=== PATIENT | male | born 1960 | race Caucasian/White ===

== ENCOUNTER 2016-11-20 09:34 | Day surgery (SDC) | payer OTHER ==
[2016-11-19 13:06] VITALS: BMI 25.0
[~2016-11-20 09:34] MED LIST: ACETAMINOPHEN 325 MG TABLET (FP) PO PRN; CHONDROITIN SU A/HYALUR SOD 1 KIT IO ONE; CIPROFLOXACIN HCL 0.3% OPHTH 2.5ML BOTTLE OP SCH; CYCLOPENTOLATE HCL 1% OPHTH SOLN 2 ML BOTTLE OP SCH; EPINEPHrine/PF 1 MG/1 ML (1:1,000) AMPULE IO ONE; FLURBIPROFEN 0.03% OPHTH SOLN 2.5 ML BOTTLE OP SCH; HYALURONATE SODIUM 14 MG/ML DISP.SYRIN IO ONE; LIDOCAINE HCL 1% PRESERVATIVE FREE - 30ML VIAL IO ONE; LIDOCAINE HCL 2% JELLY (5 ML/TUBE) TP ONE; PHENYLEPHRINE 2.5% OPHTH SOLN 15 ML BOTTLE OP SCH; POVIDONE-IODINE 5% OPHTHALMIC PREP 30 ML SOLUTION OS ONE; TROPICAMIDE 1% OPHTH SOLN 15 ML BOTTLE OP SCH; TRYPAN BLUE 0.5 ML DISP.SYRIN IO ONE; VANCOMYCIN 500 MG VIAL (RESTRICTED TO ID ONLY) IVPB ONE
[2016-11-20] MEDS ORDERED: TROPICAMIDE 1% OPHTH SOLN 15 ML BOTTLE ONE (09:47)
[2016-11-20] MEDS ORDERED: CYCLOPENTOLATE HCL 1% OPHTH SOLN 2 ML BOTTLE ONE (09:47)
[2016-11-20] MEDS ORDERED: PHENYLEPHRINE 2.5% OPHTH SOLN 15 ML BOTTLE ONE (09:47)
[2016-11-20] MEDS ORDERED: CIPROFLOXACIN 0.3% EYE DROPS 5 ML BOTTLE ONE (09:47)
[2016-11-20 10:00] VITALS: TEMP 98.1
[2016-11-20] MEDS ORDERED: CYCLOPENTOLATE HCL 1% OPHTH SOLN 2 ML BOTTLE OS ONE ×3 (10:05→10:17)
[2016-11-20] MEDS ORDERED: TROPICAMIDE 1% OPHTH SOLN 15 ML BOTTLE OS ONE ×3 (10:05→10:17)
[2016-11-20] MEDS ORDERED: PHENYLEPHRINE 2.5% OPHTH SOLN 15 ML BOTTLE OS ONE ×3 (10:05→10:17)
[2016-11-20] MEDS ORDERED: CIPROFLOXACIN HCL 0.3% OPHTH 2.5ML BOTTLE OS ONE ×3 (10:05→10:17)
[2016-11-20] MEDS ORDERED: LIDOCAINE HCL/PF 1% SDV 5ML VIAL ONE (10:10)
[2016-11-20] MEDS ORDERED: LIDOCAINE HCL 2% JELLY (5 ML/TUBE) ONE (10:10)
[2016-11-20] MEDS ORDERED: EPINEPHrine/PF 1 MG/1 ML (1:1,000) AMPULE ONE (10:10)
[2016-11-20] MEDS ORDERED: BSS (NA/CA/MG/K) BALANCED SALT SOLUTION OPHTH SOLN 15 ML BOTTLE ONE (10:10)
[2016-11-20] MEDS ORDERED: MIDAZOLAM HCL 2 MG/2 ML SINGLE DOSE VIAL ONE (10:42)
[2016-11-20] MEDS ORDERED: PROPOFOL 20 ML ONE (11:05)
[2016-11-20] MEDS ORDERED: BUPIVACAINE HCL/PF 0.75% 10 ML VIAL ONE (11:05)
[2016-11-20] MEDS ORDERED: LIDOCAINE HCL/PF 2% SDV 5ML VIAL ONE ×2 (11:06→11:14)
[2016-11-20] MEDS ORDERED: LIDOCAINE HCL/PF 2% SDV 5ML VIAL INF ONE (11:30)
[2016-11-20] MEDS ORDERED: BUPIVACAINE HCL/PF 0.75% 10 ML VIAL RB ONE (11:30)
[2016-11-20] MEDS ORDERED: POVIDONE-IODINE 5% OPHTHALMIC PREP 30 ML SOLUTION OS ONE (11:35)
[2016-11-20] MEDS ORDERED: BSS (NA/CA/MG/K) BALANCED SALT SOLUTION OPHTH SOLN 15 ML BOTTLE OS ONE (11:40)
[2016-11-20] MEDS ORDERED: LIDOCAINE HCL 1% PRESERVATIVE FREE - 30ML VIAL IO ONE (11:41)
[2016-11-20] MEDS ORDERED: HYALURONATE SODIUM 14 MG/ML DISP.SYRIN IO ONE (11:42)
[2016-11-20] MEDS ORDERED: CHONDROITIN SU A/HYALUR SOD 1 KIT IO ONE (11:42)
[2016-11-20] MEDS ORDERED: TRYPAN BLUE 0.5 ML DISP.SYRIN IO ONE (11:56)
[2016-11-20] MEDS ORDERED: EPINEPHrine/PF 1 MG/1 ML (1:1,000) AMPULE IO ONE (11:56)
[2016-11-20] MEDS ORDERED: VANCOMYCIN 500 MG VIAL (RESTRICTED TO ID ONLY) IVPB ONE (12:25)
[2016-11-20] MEDS ORDERED: TRYPAN BLUE 0.5 ML DISP.SYRIN ONE (12:47)
[2016-11-20 13:20] VITALS: BP 125/74; PULSE 72
--- NOTE | 2016-11-21 09:46 | OP ---
DATE OF OPERATION: 11/20/2016 SURGEON: Lashonda Oliva M.D. PREOPERATIVE DIAGNOSIS: Mature cataract, left eye. ASSOCIATED DIAGNOSES: 1. Posterior synechiae. 2. Persistent miosis. OPERATION: Phacoemulsification of left cataract with synechiolysis, pupil stretching, iris hooks, capsular staining with Trypan blue, and posterior chamber intraocular lens implantation. The lens used [id number], 23.0 Diopter power, Serial No. [id number]. ANESTHESIA: Peribulbar/Modified Van Lint/MAC. COMPLICATIONS: None. PROCEDURE: The patient was brought into the operating room and correctly identified along with the operative site as well as correct intraocular lens power. He was then given a peribulbar block under sedation with 5 mL of a 1-to-1 mixture of 2% lidocaine and 0.75% bupivacaine. Then, 3 mL of the same of the same mixture was given as a modified Van Lint block. The eye was then prepped and draped in the usual sterile fashion including 5% Betadine solution in the conjunctival sac and an eyelid drape. An eyelid speculum was then placed into the left eye. 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 A paracentesis port was created and intracameral Lidocaine approximately 0.4 mL was given, and as well, viscoelastic was injected to inflate the anterior chamber. Using the viscoelastic cannula, an attempt was made to free the posterior synechiae, and this was achieved partially. A second paracentesis port was created at another angle, and the viscoelastic cannula was then used to also try to free, and this partly freed the iris, as well. A temporal clear corneal wound was created, and using two kuglen hooks, the pupil was then stretched, and all the synechiae freed. However, the pupil still remained constricted as there was a pupillary membrane surrounding the pupil, holding the pupil approximately 4 mm. Additional paracenteses were made, and using five iris hooks, the pupil was expanded to an adequate level. Beneath the viscoelastic, Trypan blue was used to stain the anterior capsule. A dense fibroid anterior capsule opacity was noted, and using a cystotome, avoiding this area, a continuous circular capsulorrhexis was successfully performed. The nucleus was then hydro-dissected with BSS and removed with phacoemulsification. The remaining cortical material was irrigated and aspirated from the eye. Viscoelastic was injected to inflate the capsular bag. The lens was injected in the capsular bag. The iris hooks were then all removed, and the viscoelastic irrigated and aspirated from the eye. BSS was injected to inflate the anterior chamber, and the anterior chamber did not seem to be fully stable, so, a single 10-0 nylon suture was placed. At the end of the procedure, no wounds were noted to be leaking. The anterior chamber was stable. The intraocular lens was well centered and covered by the anterior capsular border. Topical vancomycin was given, the eye patched and shielded, and the patient discharged from the operating room in a stable condition. LASHONDA OLIVA M.D. [id number] MTDD
== END 2016-11-20 13:24 | disposition home or self-care (01) ==
LOC: JASU-SURG 09:34
PROVIDERS: ATTEND Ophthalmology
PROC: 08RK3JZ Replacement of Left Lens with Synthetic Substitute, Percutaneous Approach (ICD-10-PCS; 2016-11-20)
PROC: 08ND3ZZ Release Left Iris, Percutaneous Approach (ICD-10-PCS; principal; 2016-11-20 11:00)
DX: H25.092 Other age-related incipient cataract, left eye (principal); H57.03 Miosis; H21.542 Posterior synechiae (iris), left eye